=== PATIENT | female | born 1995 | race Hispanic/Latino ===

== ENCOUNTER 2020-01-07 09:45 | Inpatient (IN) | payer MEDICAID ==
[~2020-01-07] VITALS: Ht 167.6 cm; Wt 88.9 kg
[~2020-01-07 09:45] MED LIST: PREN-66 PO
[2020-01-07] MEDS ORDERED: LACTATED RINGERS 1000ML 1,000 ML IV PRN (10:29)
[2020-01-07] MEDS ORDERED: MEPERIDINE-PF 50 MG/ML SYG IVP SCH (10:30)
[2020-01-07] MEDS ORDERED: PROMETHAZINE HCL 25 MG/ML 1ML AMPULE IM SCH (10:30)
[2020-01-07] MEDS ORDERED: OXYTOCIN 10 USP UNITS/ML 20 UNIT in LACTATED RINGERS 1000ML 1,000 ML IV SCH (10:30)
[2020-01-07 11:07] LABS: HEMATOCRIT 36.4 % (36-48); MEAN CORPUSCULAR HEMOGLOBIN 28.6 pg (27.0-33.0); MEAN CORPUSCULAR HGB CONC 32.4 g/dL (32.0-36.0); MEAN CORPUSCULAR VOLUME 88.3 fL (79-99); RED BLOOD CELL COUNT(AUTO) 4.12 MIL/uL (4.00-5.50); WHITE BLOOD COUNT (AUTO) 9.4 K/uL (4.8-10.8)
[2020-01-07] MEDS ORDERED: DIPH,PERTUSS(ACELL),TET VAC/PF 0.5 ML VIAL IM PRN (15:30)
[2020-01-07] MEDS ORDERED: MEASLES/MUMPS/RUBELLA VACCINE, LIVE 0.5 ML/VIAL SQ PRN (15:30)
[2020-01-07] MEDS ORDERED: ACETAMINOPHEN-CODEINE 300/30MG TAB PO PRN (15:30)
[2020-01-07] MEDS ORDERED: OXYTOCIN-LR 20 UNITS/1000 ML 1,000 ML IV SCH (15:30)
[2020-01-07] MEDS ORDERED: ACETAMINOPHEN 325 MG TAB PO PRN (15:30)
[2020-01-07] MEDS ORDERED: LANOLIN 30GM OINTMENT TP PRN (15:30)
[2020-01-07] MEDS ORDERED: WITCH HAZEL 1 PAD TP PRN (15:30)
[2020-01-07] MEDS ORDERED: BENZOCAINE/LANOLIN/ALOE VERA 60 ML AEROSOL TP PRN (15:30)
[2020-01-07] MEDS ORDERED: OXYTOCIN-LR 20 UNITS/1000 ML 1,000 ML IV ONE (15:42)
[2020-01-07] MEDS: IBUPROFEN 600 MG TABLET PO PRN ×2 (16:10→23:27)
--- NOTE | 2020-01-07 17:20 | NUR ---
ASSESSMENT: RECEIVED FROM L&D VIA W/C TO 115. POST OP V/D. MADE COMFORTABLE IN BED, EXPLAINED POC AND UNDERSTANDING VERBALIZED. CALL RONQUILLO AT HER SIDE.
[2020-01-07 17:28] VITALS: BP 111/58
[2020-01-07 19:32] VITALS: BP 117/71
[2020-01-07] MEDS: DOCUSATE SODIUM 100 MG CAP PO SCH (21:22)
[2020-01-07 23:40] VITALS: BP 113/58
[2020-01-08] MEDS ORDERED: ONDA4TAB4 PO (01:57)
[2020-01-08 03:51] VITALS: BP 95/47
[2020-01-08 07:31] VITALS: BP 104/57
[2020-01-08] MEDS: DOCUSATE SODIUM 100 MG CAP PO SCH (08:50)
[2020-01-08] MEDS: IBUPROFEN 600 MG TABLET PO PRN (08:51)
[2020-01-08 11:08] VITALS: BP 110/53
--- NOTE | 2020-01-08 16:30 | NUR ---
DISCHARGE PT LEFT UNIT VIA WHEELCHAIR, WITH BABY IN ARMS, ACCOMPANIED BY SIGNIFICANT OTHER. DENIED PAIN AND HAD NO COMPLAINTS. BABY STRAPPED IN CAR SEAT. PT AND BABY TRANSPORTED BY PERSONAL VEHICLE.
[2020-01-09 16:09] LABS: HEPATITIS Bs ANTIGEN SCREEN P Negative (Negative)
== END 2020-01-08 16:30 | disposition home or self-care (01) | DRG 560 ==
LOC: EDH 09:45 → OBSVTOIN 09:46 → LDH 09:46 → WSH 17:07
PROVIDERS: ADMIT Specialist; ATTEND Specialist
PROC: 10E0XZZ Delivery of Products of Conception, External Approach (ICD-10-PCS; principal; 2020-01-07)
PROC: 3E0234Z Introduction of Serum, Toxoid and Vaccine into Muscle, Percutaneous Approach (ICD-10-PCS; 2020-01-07)
PROC: 3E0134Z Introduction of Serum, Toxoid and Vaccine into Subcutaneous Tissue, Percutaneous Approach (ICD-10-PCS; 2020-01-07)
DX: O80 Encounter for full-term uncomplicated delivery (principal); Z3A.38 38 weeks gestation of pregnancy; Z37.0 Single live birth; Z23 Encounter for immunization
CPT/HCPCS: 36415; 85027; 86592; 86850; 86900; 86901; 87340; 90715; A4606; G0378; J2175; J2550; J2590; J7120

== ENCOUNTER → 2020-03-14 | Outpatient (CLI) | payer MEDICAID ==
[~2020-03-14] MED LIST changes: +LACTATED RINGERS 1000ML 1,000 ML IV SCH; +ONDA4TAB4 PO; -PREN-66 PO
[2020-03-14 10:49] LABS: BASOPHILS % (AUTO) 0.6 % (0.0-5.0); EOSINOPHILS % (AUTO) 1.1 % (0.0-8.0); HEMATOCRIT 41.7 % (36-48); LYMPHOCYTES % (AUTO) 33.3 % (21.0-51.0); MEAN CORPUSCULAR HEMOGLOBIN 28.4 pg (27.0-33.0); MEAN CORPUSCULAR HGB CONC 32.1 g/dL (32.0-36.0); MEAN CORPUSCULAR VOLUME 88.3 fL (79-99); MONOCYTES % (AUTO) 6.2 % (3.0-13.0); NEUTROPHILS % (AUTO) 58.4 % (40.0-77.0); PLATELET COUNT (AUTO) 290 K/uL (130-400); RED BLOOD CELL COUNT(AUTO) 4.72 MIL/uL (4.00-5.50); RED CELL DISTRIBUTION WIDTH 13.9 % (11.0-15.5); WHITE BLOOD COUNT (AUTO) 7.3 K/uL (4.8-10.8)
--- NOTE | 2020-03-15 15:44 | NUR ---
RE: COVID RESULTS CALLED DR ESCALANTE'S OFFICE AND SPOKE WITH NURSE (LAVERNE). INFORMED HER THAT PATIENT TESTED POSITIVE FOR COVID. PER LAVERNE, SHE WILL INFORM DR ESCALANTE AND CALL US BACK TO INFORM US IF PROCEDURE WILL BE CANCELLED.
--- NOTE | 2020-03-15 15:46 | NUR ---
RE: COVID RESULTS INFORMED PATIENT OF POSITIVE COVID RESULTS VIA TELEPHONE. EXPLAINED TO HER THAT DR ESCALANTE'S OFFICE WILL BE CALLING HER TO LET HER KNOW IF SURGERY WILL BE CANCELLED.
== END | disposition home or self-care (01) ==
LOC: DAH 10:00 → EDSTATUS 03-15 09:00
PROVIDERS: ATTEND Specialist
DX: Z01.818 Encounter for other preprocedural examination (principal); Z30.2 Encounter for sterilization; U07.1 COVID-19
CPT/HCPCS: 36415; 84703; 85025; 86850; 86900; 86901; C9803; U0003

== ENCOUNTER 2020-05-14 05:38 | Day surgery (SDC) | payer MEDICAID ==
[2020-05-13 12:11] LABS: BASOPHILS % (AUTO) 0.4 % (0.0-5.0); EOSINOPHILS % (AUTO) 1.7 % (0.0-8.0); HEMATOCRIT 42.1 % (36-48); LYMPHOCYTES % (AUTO) 31.3 % (21.0-51.0); MEAN CORPUSCULAR HEMOGLOBIN 29.7 pg (27.0-33.0); MEAN CORPUSCULAR HGB CONC 32.5 g/dL (32.0-36.0); MEAN CORPUSCULAR VOLUME 91.1 fL (79-99); MONOCYTES % (AUTO) 4.8 % (3.0-13.0); NEUTROPHILS % (AUTO) 61.4 % (40.0-77.0); PLATELET COUNT (AUTO) 293 K/uL (130-400); RED BLOOD CELL COUNT(AUTO) 4.62 MIL/uL (4.00-5.50); RED CELL DISTRIBUTION WIDTH 13.1 % (11.0-15.5); WHITE BLOOD COUNT (AUTO) 7.5 K/uL (4.8-10.8)
[2020-05-14] VITALS (19 sets, daily range): BP systolic 109–132; BP diastolic 62–84
[~2020-05-14 05:38] MED LIST changes: +FERR-82 PO; -LACTATED RINGERS 1000ML 1,000 ML IV SCH; +PREN1TAB63 PO
[2020-05-14] MEDS ORDERED: LACTATED RINGERS 1000ML 1,000 ML IV ONE (06:10)
[2020-05-14] MEDS ORDERED: MIDAZOLAM HCL 1 MG/ML 2ML VIAL ONE (06:22)
[2020-05-14] MEDS ORDERED: ROCURONIUM 10MG/1ML SYR 10 MG/ML ML ONE (06:22)
[2020-05-14] MEDS ORDERED: PROPOFOL 10 MG/ML 20ML VIAL IV ONE (06:22)
[2020-05-14] MEDS ORDERED: LIDOCAINE PF 2% 5ML ABBOJECT ONE (06:22)
[2020-05-14] MEDS ORDERED: FENTANYL CITRATE PF 50 MCG/1 ML 2ML VIAL ONE (06:22)
[2020-05-14] MEDS ORDERED: SUCCINYLCHOLINE CHLORIDE 20 MG/ML 10 ML VIAL ONE (06:22)
[2020-05-14] MEDS ORDERED: DEXAMETHASONE SOD PHOSPHATE 4 MG/ML 1ML VIAL ONE (06:26)
[2020-05-14] MEDS ORDERED: ONDANSETRON HCL 4 MG/2 ML VIAL ONE (06:26)
[2020-05-14] MEDS ORDERED: ACETAMINOPHEN-CODEINE 300/30MG TAB PO SCH (09:00)
[2020-05-14] MEDS ORDERED: ACETAMINOPHEN-CODEINE 300/30MG TAB ONE (09:09)
== END 2020-05-14 09:45 | disposition home or self-care (01) ==
LOC: DAH 05:38
PROVIDERS: ATTEND Obstetrics & Gynecology
DX: Z30.2 Encounter for sterilization (principal); F41.9 Anxiety disorder, unspecified; Z79.899 Other long term (current) drug therapy; Z20.828 Contact with and (suspected) exposure to other viral communicable diseases
CPT/HCPCS: 36415; 58670; 84703; 85025; 86850; 86900; 86901; A4215 ×2; A4221; A4222; A4223; A4351; A4452; A4606; A4663; C1769 ×2; C9803; J0330; J1100; J2001; J2250; J2405; J2704; J3010; J7120; U0003